=== PATIENT | male | born 1960 | race Caucasian/White ===

== ENCOUNTER 2020-03-10 19:34 | Emergency (ER) | payer OTHER ==
[2020-03-10 19:41] VITALS: TEMP 99.3; BMI 33.6
--- NOTE | 2020-03-10 19:42 | PDOC ---
Rapid Medical Evaluation Chief Complaint: Pain Time Seen by Provider: 03/10/20 19:41 Medical Evaluation: Allergies Allergy/AdvReac Type Severity Reaction Status Date / Time No Known Allergies Allergy Verified 03/10/20 19:41 Vital Signs Temp Pulse Resp BP Pulse Ox 99.3 F 74 18 163/94 99 03/10/20 19:38 03/10/20 19:38 03/10/20 19:38 03/10/20 19:38 03/10/20 19:38 59 year old male with pmhx of HTN HLD pre DM complaining of 1 week of abdominal pain. Nausea constipation, pt states dark stool. PE: No tender abdominal exam RRR CTA Plan: Labs GI Cocktail Pt moved to ED for further eval 03/10/20 19:41 03/10/20 19:48
[2020-03-10] MEDS ORDERED: MAG HYDROX/AL HYDROX/SIMETH 30 ML UNIT-DOSE CUP PO ONE (19:43)
[2020-03-10] MEDS ORDERED: PANTOPRAZOLE SODIUM 40 MG VIAL IVPUSH ONE (19:43)
[2020-03-10] MEDS ORDERED: MAG HYDROX/AL HYDROX/SIMETH 30 ML UNIT-DOSE CUP ONE (20:05)
[2020-03-10] MEDS ORDERED: PANTOPRAZOLE SODIUM 40 MG VIAL ONE (20:05)
[2020-03-10 20:28] LABS: BASO % 0.4 % (0-2.0); EOS % 1.1 % (0-4.5); HEMOGLOBIN 14.6 GM/dL (11.7-16.9); LYMPH % 17.6 % (8-40); MCH 29.4 pg (25.7-33.7); MCHC 34.1 g/dl (32.0-35.9); MEAN CELL VOLUME 86.3 fl (80-96); MEAN PLT VOLUME 7.1 fl (7.5-11.1); MONO % 7.4 % (3.8-10.2); NEUT % 73.5 % (42.8-82.8); PLATELET COUNT 334 K/MM3 (134-434); RBC 4.98 M/mm3 (4.00-5.60); RDW 12.6 % (11.9-15.9)
[2020-03-10] MEDS ORDERED: ACETAMINOPHEN 1000 MG/100 ML VIAL (NON FORMULARY) IVPB ONE (20:31)
[2020-03-10] MEDS ORDERED: SODIUM CHLORIDE 0.9% 500 ML INFUS.BAG IV ONE ×2 (20:33→22:49)
[2020-03-10 20:34] LABS: INR 1.03 (0.83-1.09); PROTHROMBIN TIME (PATIENT) 12.2 SEC (9.7-13.0)
[2020-03-10] MEDS ORDERED: ACETAMINOPHEN INJECTION 100 ML IVPB ONE (20:34)
[2020-03-10 20:36] LABS: ACTIVATED PTT 28.6 SECONDS (25.2-36.5)
--- NOTE | 2020-03-10 20:47 | PDOC ---
History of Present Illness - General Chief Complaint: Pain Stated Complaint: ABD PAIN Time Seen by Provider: 03/10/20 19:41 History Source: Patient, Family Exam Limitations: No Limitations - History of Present Illness Initial Comments: 03/10/20 20:42 Baljinder Barcenas is a 59M with PMH HTN, GERD, HLD presenting with one week of lower abdominal pain. Patient reports last week began having sudden onset bilateral lower abdominal pain, no recent trauma, unrelated to movement or position. Denies any fever, chills, chest pain, SOB. No urinary sx or history of urinary problems. No abdominal surgeries. Has had N/V and constipation, poor PO solid/liquid intake, vomits after eating. Denies bloody stools, dark stools but taking Pepto-Bismol. Has never had colonoscopy. Saw PMD last Sunday, Rx esomeprazole which has not helped. Has not taken pain medications. Denies covid-19 exposure or symptoms. No sick contacts at home, no family sick after eating same food. Had an episode of constipation similar to this 6 months ago, self enema and felt better. Smokes 1 pack per week. Social alcohol. Denies drug use. PSH pilonidal cyst as a child NKDA Meds: telmesartan 40mg and rosuvastatin Past History - Medical History Allergies/Adverse Reactions: Allergies Allergy/AdvReac Type Severity Reaction Status Date / Time No Known Allergies Allergy Verified 03/10/20 19:41 Home Medications: Ambulatory Orders Cephalexin [Keflex] 500 mg PO BID 5 Days #10 capsule 03/10/20 Ondansetron [Zofran *Odt*] 4 mg SL TID PRN #15 od.tablet 03/10/20 Oxycodone HCl/Acetaminophen [Percocet 5-325 mg Tablet] 1 tab PO Q6H PRN #12 tablet MDD 4 tabs daily 03/10/20 Tamsulosin HCl [Flomax] 0.4 mg PO DAILY 7 Days #7 cap.er.24h 03/10/20 COPD: No HTN: Yes Hypercholesterolemia: Yes - Psycho-Social/Smoking History Smoking History: Current every day smoker Number of Cigarettes Smoked Daily: 5 Information on smoking cessation initiated: Yes - Substance Abuse Hx (Audit-C & DAST Scrn) How often the patient has a drink containing alcohol: Monthly or less Number of drinks the patient has on a typical day: 1 or 2 How often the patient has six or more drinks on one occasion: Less than monthly Score: In Men: 4 or > Positive; In Women: 3 or > Positive: 2 Screen Result (Pos requires Nsg. Audit-10AR): Negative In the last yr the pt used illegal drug/Rx for NonMed reason: No Score: Yes response is considered Positive: 0 Screen Result (Positive result requires Nsg. DAST-10): Negative Review of Systems - Review of Systems Able to Perform ROS?: Yes Constitutional: No: Symptoms Reported HEENTM: No: Symptoms Reported Respiratory: No: Cough, Shortness of Breath, SOB with Exertion, SOB at Rest, Stridor, Productive cough Cardiac (ROS): No: Chest Pain, Edema, Irregular Heart Rate ABD/GI: Yes: Constipated, Nausea, Poor Appetite, Poor Fluid Intake, Vomiting. No: Diarrhea : No: Burning, Dysuria, Discharge Musculoskeletal: No: Symptoms Reported Integumentary: No: Symptoms Reported Neurological: No: Symptoms reported Endocrine: No: Symptoms Reported Hematologic/Lymphatic: No: Symptoms Reported All Other Systems: Reviewed and Negative *Physical Exam - Vital Signs Last Vital Signs Temp Pulse Resp BP Pulse Ox 99.3 F 74 18 163/94 99 03/10/20 19:38 03/10/20 19:38 03/10/20 19:38 03/10/20 19:38 03/10/20 19:38 - Physical Exam General Appearance: Yes: Nourished, Appropriately Dressed, Obese. No: Apparent Distress HEENT: positive: EOMI, EFREM, Normal Voice, Symmetrical, Pharynx Normal, Hearing Grossly Normal. negative: Scleral Icterus (R), Scleral Icterus (L), Pharyngeal Erythema, Tonsillar Exudate, Tonsillar Erythema Neck: positive: Trachea midline, Normal Thyroid, Supple. negative: Tender, Rigid, Lymphadenopathy (R), Lymphadenopathy (L), Tender lateral, Tender midline Respiratory/Chest: positive: Lungs Clear, Normal Breath Sounds. negative: Chest Tender, Respiratory Distress, Accessory Muscle Use, Crackles, Rales, Rhonchi, Stridor, Wheezing Cardiovascular: positive: Regular Rhythm, Regular Rate Gastrointestinal/Abdominal: positive: Normal Bowel Sounds, Soft, Protuberent. negative: Tender, Organomegaly, Pulsatile Mass, Guarding, Rebound, Hernia Rectal Exam: positive: normal exam, NL Prostate, normal rectal tone, other (surgical scar over coccyx). negative: melena, hemorrhoids Musculoskeletal: positive: Normal Inspection. negative: CVA Tenderness, Decreased Range of Motion, Vertebral Tenderness Extremity: positive: Normal Capillary Refill, Normal Inspection, Normal Range of Motion, Pelvis Stable. negative: Tender, Pedal Edema, Swelling Integumentary: positive: Normal Color, Dry, Warm. negative: Cyanotic, Pale, Cold, Clammy, Diaphoresis Neurologic: positive: Fully Oriented, Alert, Normal Mood/Affect, Normal Response ED Treatment Course - LABORATORY CBC & Chemistry Diagram: 03/10/20 20:12 03/10/20 20:12 - ADDITIONAL ORDERS Additional order review: Laboratory Results 03/10/20 20:12 PT with INR 12.20 INR 1.03 PTT (Actin FS) 28.6 03/10/20 20:12 RBC 4.98 MCV 86.3 MCHC 34.1 RDW 12.6 MPV 7.1 L Neutrophils % 73.5 Lymphocytes % 17.6 Monocytes % 7.4 Eosinophils % 1.1 Basophils % 0.4 - Medications Given in the ED: ED Medications Discontinued Medications Generic Name Dose Route Start Last Admin Trade Name Freq PRN Reason Stop Dose Admin Al Hydroxide/Mg Hydroxide 30 ml 03/10/20 19:43 03/10/20 20:19 Mylanta Oral Suspension - PO 03/10/20 19:44 30 ml ONCE ONE Administration Pantoprazole Sodium 40 mg 03/10/20 19:43 03/10/20 20:19 Protonix Iv IVPUSH 03/10/20 19:44 40 mg ONCE ONE Administration Medical Decision Making - Medical Decision Making 03/10/20 20:51 Patient has PMH HTN, HLD, smoking, never had colonoscopy, presents with lower abdominal pain and constipation with N/V and poor PO intake. Presentation concerning for renal stones vs. diverticulitis vs. obstructive mass vs. bowel obstruction. VSS, rectal exam unremarkable, abdomen non-tender. Getting CBC, CMP, lipase, coags, T/S, FOBT, ECG, UA. Will most likely need CTAP for further characterization of pain. Giving Ofirmev for 8/10 pain, Mylanta and Protonix for GI pain. Labs notable for: - Cr 1.8 - WBC 14 - FOBT negative 03/10/20 21:26 NSR, LAD, incomplete RBBB, HR 71, QRS 100, QTc 412, no LUIS/D, nonspecific TWI in III, aVF, aVR. YASMIN, contraindication against IV contrast, giving PO contrast for better characterization of the colon. Planned CTAP at 22:50. Signed out to night resident, plan for CTAP and appropriate dispo. Discharge - Discharge Information Problems reviewed: Yes Clinical Impression/Diagnosis: Kidney stone on right side, YASMIN (acute kidney injury) Hydronephrosis Qualifiers: Hydronephrosis type: unspecified Qualified Code(s): N13.30 - Unspecified hydronephrosis Condition: Stable Disposition: HOME - Additional Discharge Information Prescriptions: Tamsulosin HCl [Flomax] 0.4 mg PO DAILY 7 Days #7 cap.er.24h Cephalexin [Keflex] 500 mg PO BID 5 Days #10 capsule Oxycodone HCl/Acetaminophen [Percocet 5-325 mg Tablet] 1 tab PO Q6H PRN #12 tablet MDD 4 tabs daily PRN Reason: Pain Ondansetron [Zofran *Odt*] 4 mg SL TID PRN #15 od.tablet PRN Reason: Nausea - Follow up/Referral Referrals: Delta Jacobs MD [Staff Physician] - - Patient Discharge Instructions Patient Printed Discharge Instructions: Kidney Stones -- Adult, DI for Kidney Stones Additional Instructions: Please take all medications as prescribed. Please call Dr. Jacobs first thing tomorrow for an office visit tomorrow. Please do not drive or operate heavy machinery while taking the percocet. Percocet may also cause constipation. You may want to also take over the counter colace with the percocet. Please follow up with your PMD. Please return to the ER with any further concerns or complaints. Please drink plenty of fluids. - Post Discharge Activity
[2020-03-10 20:54] LABS: BILIRUBIN,TOTAL 1.1 mg/dL (0.2-1); BLOOD UREA NITROGEN 16.9 mg/dL (7-18); CALCIUM 9.4 mg/dL (8.5-10.1); CREATININE 1.8 mg/dL (0.55-1.3); POTASSIUM 4.1 mmol/L (3.5-5.1); TOT PROT 7.2 g/dl (6.4-8.2)
[2020-03-10] MEDS ORDERED: ONDANSETRON 4 MG TABLET PO PRN (20:55)
--- NOTE | 2020-03-10 21:10 | PDOC ---
Documentation entered by Zina Espinoza SCRIBE, acting as scribe for Lucila Moran DO. Lucila Moran, DO: This documentation has been prepared by the Alexis hargrove Xhesika, SCRIBE, under my direction and personally reviewed by me in its entirety. I confirm that the documentation accurately reflects all work, treatment, procedures, and medical decision making performed by me. Attending Attestation - Resident Resident Name: Domingo Gómez - ED Attending Attestation I have performed the following: I have examined & evaluated the patient, The case was reviewed & discussed with the resident, I agree w/resident's findings & plan, Exceptions are as noted - HPI HPI: 03/10/20 19:58 The patient is a 59y/o M with a PMH of HTN, HLD, and GERD who presents to the ED for 1 week of lower abdominal pain. Pt describes his pain as 8/10, "squeezing", located at his lower abdomen region bilaterally, radiating to his back, associated with nausea, vomiting, and constipation. Pt states he took pepto bismol, and his stool is darker than usual. Pt states he saw his PCP last Sunday for similar symptoms. The patient denies chest pain, shortness of breath, headache and dizziness. Denies fever, chills, cough. Denies dysuria, frequency, urgency and hematuria. Allergies: NKDA PCP:Dr. Urias - Physicial Exam PE: 03/10/20 20:54 GENERAL: Awake, alert, and fully oriented, in no acute distress HEAD: No signs of trauma NECK: Normal ROM, supple, no lymphadenopathy, JVD, or masses LUNGS: Breath sounds equal, clear to auscultation bilaterally. No wheezes, and no crackles HEART: Regular rate and rhythm, normal S1 and S2, no murmurs, rubs or gallops ABDOMEN: +lower abdominal pain, not reproducible to palpation. Soft, normoactive bowel sounds. No guarding, no rebound. EXTREMITIES: Normal range of motion, no edema. No clubbing or cyanosis. No cords, erythema, or tenderness NEUROLOGICAL: Cranial nerves II through XII grossly intact. SKIN: Warm, Dry, normal turgor, no rashes lesions noted. - Medical Decision Making 03/10/20 20:57 a/p: 59yo male with constipation/n/v and abd pain -pt states prior episode of constipation about 5m ago, pt took an enema at that time and it improved -constipation started again last , sunday he did a tele health visit with his PMD and again used an enema but abd pain continued -had n/v over the weekend which continued until today -abd pain that has been constant in his lower abd and radiates to his back -no f/c, no wt loss, no night sweats, did not have a colonoscopy -concern for divertic vs colonic mass vs obstruction vs constipation/obstipation -will send labs, po contrast and ct scan -will send ua -no cva ttp 03/10/20 21:10 wbc 14 cr 1.8, no iv contrast 03/10/20 21:28 trop neg 03/10/20 22:49 pt with 3mm R uvj kidney stone with obstruction and mild hydro cr 1.8 ua reviewed, +blood will discuss with urology 03/10/20 23:[address] Jacobs resident discussed the case with [facility] who accepts pt to service pt updated, given flomax and ivf -abx given 03/10/20 23:32 resident discussed the case with Dr. Jacobs will not admit will dc pt to home and follow up first thing in the AM in the office will dc with flomax and abx will see urology tomorrow am 03/10/20 23:35 [facility] updated that patient will be going home Heart Score/ECG Review - ECG Intrepretation Comment:: 03/10/20 21:11 sinus at 71, l axis deviation, nl interval, t wave inversions iii which are nonspecific, no acute st changes Discharge - Discharge Information Problems reviewed: Yes Clinical Impression/Diagnosis: Hydronephrosis, Kidney stone on right side, YASMIN (acute kidney injury) Condition: Stable Disposition: HOME - Admission No - Follow up/Referral Referrals: Sherif Urias [Primary Care Provider] - Delta Jacobs MD [Staff Physician] - - Patient Discharge Instructions - Post Discharge Activity
[2020-03-10] MEDS ORDERED: ONDANSETRON *ODT* 4 MG TABLET ONE (21:45)
[2020-03-10 22:39] LABS: EPI CELLS 5 /uL (0-25.1); HYALINE CASTS 1 /uL (0-3.1); URINE APPEARANCE CLEAR; URINE BACTERIA 1 /uL (0-1359); URINE BILIRUBIN NEGATIVE (NEGATIVE); URINE COLOR YELLOW; URINE GLUCOSE (UA) NEGATIVE (NEGATIVE); URINE KETONE 1+ (NEGATIVE); URINE LEUK ESTERASE NEGATIVE (NEGATIVE); URINE NITRITE NEGATIVE (NEGATIVE); URINE PROTEIN NEGATIVE (NEGATIVE); URINE RBC 23 /uL (0-23.9); URINE UROBILINOGEN 0.2 mg/dL (0.2-1.0); URINE WBC 10 /uL (0-25.8)
--- NOTE | 2020-03-10 22:41 | PDOC ---
*Physical Exam - Vital Signs Last Vital Signs Temp Pulse Resp BP Pulse Ox 99.3 F 74 18 163/94 99 03/10/20 19:38 03/10/20 19:38 03/10/20 19:38 03/10/20 19:38 03/10/20 19:38 ED Treatment Course - LABORATORY CBC & Chemistry Diagram: 03/10/20 20:12 03/10/20 20:12 - ADDITIONAL ORDERS Additional order review: Laboratory Results 03/10/20 03/10/20 03/10/20 21:00 20:25 20:21 PT with INR INR PTT (Actin FS) Sodium Potassium Chloride Carbon Dioxide Anion Gap BUN Creatinine Est GFR (CKD-EPI)AfAm Est GFR (CKD-EPI)NonAf Random Glucose Calcium Total Bilirubin AST ALT Alkaline Phosphatase Creatine Kinase Creatine Kinase Index CK-MB (CK-2) Troponin I Total Protein Albumin Lipase Urine Color Yellow Urine Appearance Clear Urine pH 5.0 Ur Specific [place] 1.024 Urine Protein Negative Urine Glucose (UA) Negative Urine Ketones 1+ H Urine Blood 3+ H Urine Nitrite Negative Urine Bilirubin Negative Urine Urobilinogen 0.2 Ur Leukocyte Esterase Negative Urine WBC (Auto) 10 Urine RBC (Auto) 23 Urine Casts (Auto) 1 U Epithel Cells (Auto) 5 Urine Bacteria (Auto) 1 Stool Occult Blood Negative Blood Type B POSITIVE Antibody Screen Negative 03/10/20 03/10/20 03/10/20 20:12 20:12 20:12 PT with INR 12.20 INR 1.03 PTT (Actin FS) 28.6 Sodium 138 Potassium 4.1 Chloride 102 Carbon Dioxide 24 Anion Gap 11 BUN 16.9 Creatinine 1.8 H Est GFR (CKD-EPI)AfAm 47.37 Est GFR (CKD-EPI)NonAf 40.87 Random Glucose 163 H Calcium 9.4 Total Bilirubin 1.1 H AST 17 ALT 35 Alkaline Phosphatase 93 Creatine Kinase 202 Creatine Kinase Index 1.4 CK-MB (CK-2) 3.0 Troponin I < 0.02 Total Protein 7.2 Albumin 4.0 Lipase 212 Urine Color Urine Appearance Urine pH Ur Specific [place] Urine Protein Urine Glucose (UA) Urine Ketones Urine Blood Urine Nitrite Urine Bilirubin Urine Urobilinogen Ur Leukocyte Esterase Urine WBC (Auto) Urine RBC (Auto) Urine Casts (Auto) U Epithel Cells (Auto) Urine Bacteria (Auto) Stool Occult Blood Blood Type Antibody Screen 03/10/20 20:12 RBC 4.98 MCV 86.3 MCHC 34.1 RDW 12.6 MPV 7.1 L Neutrophils % 73.5 Lymphocytes % 17.6 Monocytes % 7.4 Eosinophils % 1.1 Basophils % 0.4 - Medications Given in the ED: ED Medications Discontinued Medications Generic Name Dose Route Start Last Admin Trade Name Juvenal PRN Reason Stop Dose Admin Acetaminophen 1,000 mg 03/10/20 20:31 03/10/20 20:42 Ofirmev Injection - IVPB 03/10/20 20:32 1,000 mg ONCE ONE Administration Al Hydroxide/Mg Hydroxide 30 ml 03/10/20 19:43 03/10/20 20:19 Mylanta Oral Suspension - PO 03/10/20 19:44 30 ml ONCE ONE Administration Pantoprazole Sodium 40 mg 03/10/20 19:43 03/10/20 20:19 Protonix Iv IVPUSH 03/10/20 19:44 40 mg ONCE ONE Administration Sodium Chloride 1,000 ml 03/10/20 20:33 03/10/20 20:42 Normal Saline - IV 03/10/20 20:34 1,000 ml ONCE ONE Administration Medical Decision Making - Medical Decision Making 03/10/20 22:40 Sign out received during shift change. 59M w/hx HTN, GERD, HLD presenting with one week of lower abdominal pain. Ddx colitis, diverticulitis, CA. YASMIN noted on CMP (Cr 1.8) Pending: UA CT abdomen/pelvis result Dispo: Admit 03/10/20 22:47 3mm partially obstructing stone noted in L UVJ with mild hydronephrosis and hydroureter Plan for 1g ceftriaxone, flomax, 1L NS, as well as inpatient admission for YASMIN. Call placed for urology consult. 03/10/20 23:[address] Adalid Holland (urology). He will see patient in the clinic in the morning rather than as inpatient admission. Plan for discharge with abx, flomax, and close urology follow up. Discharge - Discharge Information Problems reviewed: Yes Clinical Impression/Diagnosis: Hydronephrosis, Kidney stone on right side, YASMIN (acute kidney injury) Condition: Stable Disposition: HOME - Admission No - Additional Discharge Information Prescriptions: Tamsulosin HCl [Flomax] 0.4 mg PO DAILY 7 Days #7 cap.er.24h Cephalexin [Keflex] 500 mg PO BID 5 Days #10 capsule Oxycodone HCl/Acetaminophen [Percocet 5-325 mg Tablet] 1 tab PO Q6H PRN #12 tablet MDD 4 tabs daily PRN Reason: Pain Ondansetron [Zofran *Odt*] 4 mg SL TID PRN #15 od.tablet PRN Reason: Nausea - Follow up/Referral Referrals: Delta Jacobs MD [Staff Physician] - - Patient Discharge Instructions Patient Printed Discharge Instructions: Kidney Stones -- Adult, DI for Kidney Stones Additional Instructions: Please take all medications as prescribed. Please call Dr. Jacobs first thing tomorrow for an office visit tomorrow. Please do not drive or operate heavy machinery while taking the percocet. Percocet may also cause constipation. You may want to also take over the counter colace with the percocet. Please follow up with your PMD. Please return to the ER with any further concerns or complaints. Please drink plenty of fluids. - Post Discharge Activity
[2020-03-10] MEDS ORDERED: TAMSULOSIN HCL 0.4 MG CAP PO ONE (22:48)
[2020-03-10] MEDS ORDERED: CEFTRIAXONE 1 GM/50 ML BAG ONE (22:55)
[2020-03-10] MEDS ORDERED: TAMSULOSIN HCL 0.4 MG CAP ONE (22:55)
--- NOTE | 2020-03-10 23:22 | PN ---
Teaching Attending Note Name of Resident: Riki Dominique ATTENDING PHYSICIAN STATEMENT I saw and evaluated the patient. I reviewed the resident's note and discussed the case with the resident. I agree with the resident's findings and plan as documented. SUBJECTIVE: Patient is a 59 year old man with a PMH of HTN, HLD, Tobacco use and GERD who pr esents to the ER with complaint lower abdominal pain for one week. Patient describes his pain as 8/10 in intensity, "squeezing", located at his lower abdomen region bilaterally, radiating to his back, associated with nausea, vomiting, and constipation. Patient states he took Pepto bismol, and his stool is darker than usual. Reports that he saw his PCP last Sunday for similar symptoms. Patient denies chest pain, shortness of breath, headache, dizziness, fever, chills, cough, dysuria, frequency, urgency, diarrhea or hematuria. Denies alcohol or illicit drug use. No sick contacts or recent travels. Family history is unremarkable. OBJECTIVE: Alert Vital Signs Period Temp Pulse Resp BP Sys/Robles Pulse Ox Last 24 Hr 99.3 F 74 18 163/94 99 HEENT: No Jaundice, eye redness or discharge, PERRLA, EOMI. Normocephalic, atraumatic. External ears are normal and hearing is grossly intact. No nasal discharge. Neck: Supple, nontender. No palpable adenopathy or thyromegaly. No JVD Chest: Good effort. Clear to auscultation and percussion. Heart: Regular. No S3, rub or murmur Abdomen: Not distended, soft, nontender and no HSM. No rebound or guarding. Normal bowel sounds. Ext: Peripheral pulses intact. No leg edema. Skin: Warm and dry. No petechiae, rash or ecchymosis. Neuro: Alert. Oriented x3. CN 2-12 grossly intact. Sensation grossly intact in all four extremities and DTR are symmetric. Psych: Appropriate mood and affect. Good insight. Current Medications Generic Name Dose Route Start Last Admin Trade Name Freq PRN Reason Stop Dose Admin Ondansetron HCl 4 mg 03/10/20 20:55 03/10/20 21:54 Zofran - PO 4 mg ONCE PRN Administration NAUSEA AND/OR VOMITING Abnormal Lab Results 03/10/20 03/10/20 03/10/20 20:12 20:12 21:00 WBC 14.0 H MPV 7.1 L Absolute Neuts (auto) 10.3 H Creatinine 1.8 H Random Glucose 163 H Total Bilirubin 1.1 H Urine Ketones 1+ H Urine Blood 3+ H ASSESSMENT AND PLAN: 1. YASMIN Etiology unclear, but partly due to dehydration. CT abdomen/pelvis with oral contrast shows 3 mm right ureteral calculus with mild hydronephrosis. Will hydrate, monitor urine output and consult Nephrology. Avoid nephrotoxic agents such as NSAIDS, aminoglycosides, contrast dyes and certain Alternative medicine products. ER staff prescribed Tylenol, Eocephin, Flomax, Mylanta, Zofran, Protonix and IV NS for the patient. EKG shows NSR at 71/minute and QTc 412, LAD, T wave inversion in III, aVR, aVF with no significant ST wave changes. Will treat patient with IV Rocephin, Flomax, IV 0.45% NaCl, Tylenol PRN and consult Urology. Viral testing for COVID-19 ordered and patient placed on airborne, droplet and contact isolation. Will continue comprehensive care for all of patients comorbid conditions. 2. Tobacco Use Counseled on risks associated with tobacco use. We will provide patient all the necessary assistance to facilitate smoking cessation and prescribe Nicotine patch. 3. Obesity Counseled on the risks associated with obesity. Will provide patient all the necessary assistance, counseling and positive reinforcement to facilitate weight loss. Consult milk driver. 4. Uncontrolled hypertension Will restart suitable outpatient antihypertensive drugs when clinically appropriate. Subsequently, will revise regimen to ensure [id number] excellent BP control. Patient counseled on the injurious effects of uncontrolled hypertension. Nonpharmacologic measures to control hypertension like weight loss, salt restriction and exercise stressed. Importance of adherence to treatment regimen and attainment of normotension emphasized. 5. DVT prophylaxis - Heparin 5000u sq tid. 6. Advance directives - Full code
[2020-03-11] MEDS ORDERED: oxyCODONE HCL 5 MG TABLET PO ONE (00:24)
[2020-03-11] MEDS ORDERED: ONDANSETRON *ODT* 4 MG TABLET SL ONE (00:26)
[2020-03-11 00:44] VITALS: BP 155/95; PULSE 68
--- NOTE | 2020-03-11 14:06 | EKG ---
Test Reason : Blood Pressure : / mmHG Vent. Rate : 071 BPM Atrial Rate : 071 BPM P-R Int : 152 ms QRS Dur : 100 ms QT Int : 380 ms P-R-T Axes : 058 -57 018 degrees QTc Int : 412 ms NORMAL SINUS RHYTHM POSSIBLE LEFT ATRIAL ENLARGEMENT LEFT AXIS DEVIATION PULMONARY DISEASE PATTERN INCOMPLETE RIGHT BUNDLE BRANCH BLOCK ABNORMAL ECG NO PREVIOUS ECGS AVAILABLE Confirmed by KVNG WOODS MD ([id number]) on 03/11/2020 2:05:51 PM Referred By: Confirmed By:KVNG WOODS MD
== END 2020-03-11 00:42 | disposition home or self-care (01) ==
LOC: JER 19:34 → UNDOADMIN 22:50 → JERBED 22:50 → JER 03-11 00:42
PROC: 3E033GC Introduction of Other Therapeutic Substance into Peripheral Vein, Percutaneous Approach (ICD-10-PCS; principal; 2020-03-10)
DX: N13.2 Hydronephrosis with renal and ureteral calculous obstruction (principal); N17.9 Acute kidney failure, unspecified
CPT/HCPCS: 36415; 74176-TC; 80053; 81003; 82272; 82550; 82553; 83690; 84484; 85025; 85610; 85730; 86850; 86900; 86901; 93005; 93010; 99285-25; J0131; Q0162; Q9967

== ENCOUNTER 2020-04-05 14:19 | Day surgery (SDC) | payer OTHER ==
[2020-04-05 09:42] VITALS: BMI 33.2
[2020-04-05] MEDS ORDERED: PROPOFOL 20 ML ONE (16:02)
[2020-04-05] MEDS ORDERED: MIDAZOLAM HCL 2 MG/2 ML SINGLE DOSE VIAL ONE (16:02)
--- NOTE | 2020-04-05 16:29 | OP ---
Operative Note - Note: Operative Date: 04/05/20 Pre-Operative Diagnosis: Right renal stone Operation: Right ESWL Findings: 5 mm mid pole Right renal stone Post-Operative Diagnosis: Same as Pre-op Surgeon: Delta Jacobs Anesthesia: Regional Estimated Blood Loss (mls): 0 Operative Report Dictated: Yes
[2020-04-05 19:36] VITALS: BP 124/71; PULSE 80; TEMP 98.8
--- NOTE | 2020-04-06 15:06 | OP ---
DATE OF OPERATION: 04/05/2020 PREOPERATIVE DIAGNOSIS: Right renal stone. POSTOPERATIVE DIAGNOSIS: Right renal stone. PROCEDURE: Right extracorporeal shock-wave lithotripsy. ATTENDING: Solitario Salmon MD ANESTHESIA: Fractional. OPERATION: The patient was brought in the operating room, placed in supine position on the operating room table. Ultrasonography and fluoroscopy were performed. A 5-mm right midpole stone was identified. Anesthesia and preoperative antibiotics were then administered. The patient then underwent shock-wave lithotripsy, 2500 impulses at 17 joules of power were administered to the stone. Excellent fragmentation of the stone was noted under real-time ultrasonography and fluoroscopy. No complications were noted. SOLITARIO SALMON M.D. /[id number]
== END 2020-04-05 17:45 | disposition home or self-care (01) ==
LOC: JASU-SURG 14:19
PROVIDERS: ATTEND Urology
PROC: 0TF3XZZ Fragmentation in Right Kidney Pelvis, External Approach (ICD-10-PCS; principal; 2020-04-05 16:00)
DX: N20.0 Calculus of kidney (principal)

== ENCOUNTER 2021-06-13 04:22 | Day surgery (SDC) | payer OTHER ==
[2021-06-09 14:33] VITALS: BMI 32.1
[2021-06-13] MEDS ORDERED: PROPOFOL 20 ML ONE (12:39)
[2021-06-13] MEDS ORDERED: MIDAZOLAM HCL 2 MG/2 ML SINGLE DOSE VIAL ONE ×2 (13:44→13:50)
[2021-06-13 15:31] VITALS: BP 135/69; PULSE 75; TEMP 97.6
== END 2021-06-13 15:10 | disposition home or self-care (01) ==
LOC: JASU-SURG 04:22
PROVIDERS: ATTEND Urology
PROC: 0TF3XZZ Fragmentation in Right Kidney Pelvis, External Approach (ICD-10-PCS; principal; 2021-06-13 12:00)
DX: N20.0 Calculus of kidney (principal)